=== PATIENT | female | born 1975 | race Caucasian/White ===

== ENCOUNTER → 2019-09-24 | Outpatient (CLI) | payer SELFPAY | PROVIDERS: Family Provider Family Medicine | DX: R10.9 Unspecified abdominal pain (principal); R31.9 Hematuria, unspecified | CPT/HCPCS: 76770 ==

== ENCOUNTER 2019-10-10 15:11 | Outpatient (CLI) | payer MEDICAID, SELFPAY ==
--- NOTE | 2019-10-10 15:17 | US_ITS ---
WS: [id number] TRANSABDOMINAL PELVIC AND TRANSVAGINAL PELVIC ULTRASOUND HISTORY: LLQ ABDOMINAL PAIN/L FLANK PAIN/HEMATURIA COMPARISON: 04/16/2019 and 05/12/2016 Uterus: 9 point cm x 5.5 cm x 4.7 cm. Uterus is very slightly enlarged and antegrade. Mild heterogene ity in the myometrium. Indeterminate for small fibroid in the RIGHT uterus measuring approximately 1. 7 x 1.3 cm. Endometrium: 0.7 cm. Normal homogeneity. Right ovary: 2.8 cm x 1.5 cm x 2.7 cm. Normal size and echogenicity. Normal vascularity. Left ovary: 2.8 cm x 3.0 cm x 1.8 cm. Normal size ovary with normal echogenicity. Normal vascularity. No free fluid. US/US pelvic with transvaginal IMPRESSION: 1. Very slight uterine enlargement and possible fibroid on the LEFT myometrium . 2. Normal endometrium.
== END 2019-10-10 15:12 | disposition home or self-care (01) ==
LOC: RAD 15:15
PROVIDERS: Family Provider Family Medicine; Visit Provider Nurse Practitioner Family
DX: N85.2 Hypertrophy of uterus (principal); R10.32 Left lower quadrant pain; R31.9 Hematuria, unspecified
CPT/HCPCS: 76830; 76856

== ENCOUNTER 2020-01-07 13:42 | Outpatient (CLI) | payer MEDICAID, SELFPAY ==
--- NOTE | 2020-01-07 14:15 | CT_ITS ---
WS: [id number] CT ABDOMEN PELVIS TECHNIQUE: Noncontrast CT of the abdomen and pelvis with coronal and sagittal reformatted images. CLINICAL INFORMATION: LEFT LOWER QUADRANT ABDOMINAL PAIN COMPARISON: CT April 16, 2019 DLP: 1093.[address] scans at [facility] use at least one of these dose optimization techniques: automat ed exposure control; mA and/or kV adjustment per patient size (includes targeted exams where dose is matched to clinical indication); or iterative reconstruction. FINDINGS: Noncontrast liver is normal. Noncontrast gallbladder is normal. Noncontrast spleen is normal. Normal adrenal glands. Noncontrast pancreas is unremarkable. Normal caliber abdominal aorta. Adrenal glands are normal. Lung bases are well aerated. No obstructing renal or ureteral calculi. No hydronephrosis. Pelvic phleboliths. No evidence of small or large bowel obstruction. Incidental fat-containing umbilical hernia. Scattered stool in the colon. Normal appendix. Lobulated left ovarian cystic appearing lesion with some internal septations. This measures approximately 4.1 x 1.7 CM. This can be further evaluated ultrasound. CT/CT abdomen pelvis wo con [id number] IMPRESSION: 1. Lobulated left ovarian low-attenuation cystic-appearing lesion with some in ternal septations. Recommend further evaluation with ultrasound. 2. No obstructing renal or ureteral calculi. 3. No free fluid in the pelvis. 4. No evidence of small or large bowel obstruction. 5. No other significant findings.
== END 2020-01-07 13:43 | disposition home or self-care (01) ==
LOC: RADWPI 13:45
PROVIDERS: Family Provider Family Medicine; PCP Family Medicine; Visit Provider Family Medicine
DX: R10.32 Left lower quadrant pain (principal)
CPT/HCPCS: 74176

== ENCOUNTER 2020-01-17 15:31 | Outpatient (CLI) | payer MEDICAID, SELFPAY ==
--- NOTE | 2020-01-17 | US_ITS ---
WS: [id number] TRANSVAGINAL PELVIC ULTRASOUND HISTORY: LLQ PAIN COMPARISON: CT 01/07/2020. Prior pelvic ultrasound 10/10/2019. Uterus: 7.3 cm x 5.1 cm x 3.8 cm. Normal size anteverted uterus. No fibroid or mass. Endometrium: 0.8 cm. Normal echogenicity. Right ovary: 2.5 cm x 1.5 cm x 2.2 cm. Normal size RIGHT ovary. Normal vascularity. Left ovary: 3.1 cm x 2.6 cm x 1.6 cm. Normal size LEFT ovary. No solid mass identified. There is a sm all corpus luteum associated with the LEFT ovary with a maximum diameter of 9 mm. Mildly complex. No free fluid. US/US transvaginal [id number] IMPRESSION: 1. Small follicle LEFT ovary. 2. Otherwise negative.
== END 2020-01-17 15:32 | disposition home or self-care (01) ==
LOC: RAD 15:33
PROVIDERS: Family Provider Family Medicine; PCP Family Medicine; Visit Provider Family Medicine
DX: R10.32 Left lower quadrant pain (principal)
CPT/HCPCS: 76830

== ENCOUNTER 2020-07-07 07:50 | Outpatient (CLI) | payer MEDICAID, SELFPAY ==
--- NOTE | 2020-07-07 07:57 | MM_ITS ---
WS: [id number] BILATERAL DIGITAL SCREENING MAMMOGRAPHY WITH CAD CLINICAL INFORMATION: SCREENING HISTORY: Screening mammogram. No current complaints. COMPARISON: TECHNIQUE: Bilateral CC and MLO views. FINDINGS: The breasts are composed of heterogeneous fibroglandular density tissue, which can limit the detectio n of small underlying mass lesions. No suspicious mass, asymmetry, calcifications, or architectural d istortion. No evidence of malignancy. MM/[place] [id number] IMPRESSION: BI-RADS: 1-Negative FOLLOW UP: 1 Year Follow-up Recommend return to annual screening mammography.
== END 2020-07-07 07:51 | disposition home or self-care (01) ==
LOC: RADSHAW 07:51
PROVIDERS: Visit Provider Obstetrics & Gynecology
DX: Z12.31 Encounter for screening mammogram for malignant neoplasm of breast (principal)
CPT/HCPCS: 77067

== ENCOUNTER → 2020-11-18 15:20 | Outpatient (BNVA) | payer MEDICAID, SELFPAY | PROVIDERS: Visit Provider Obstetrics & Gynecology | DX: R35.0 Frequency of micturition (principal); N93.8 Other specified abnormal uterine and vaginal bleeding; R10.2 Pelvic and perineal pain; G89.29 Other chronic pain | CPT/HCPCS: 83001; 84146; 84315; 84443; 84702; 85025 ==

== ENCOUNTER → 2020-11-27 16:04 | Outpatient (BNVA) | payer MEDICAID, SELFPAY | PROVIDERS: Visit Provider Obstetrics & Gynecology | DX: N92.6 Irregular menstruation, unspecified (principal); N83.202 Unspecified ovarian cyst, left side | CPT/HCPCS: 76830 ==

== ENCOUNTER → 2021-01-08 16:24 | Outpatient (BNVA) | payer MEDICAID, SELFPAY | PROVIDERS: Visit Provider Obstetrics & Gynecology | DX: Z20.822 Contact with and (suspected) exposure to COVID-19 (principal); Z11.52 Encounter for screening for COVID-19; N93.9 Abnormal uterine and vaginal bleeding, unspecified | CPT/HCPCS: 87635 ==

== ENCOUNTER 2021-01-14 09:27 | Observation (INO) | payer MEDICAID, SELFPAY ==
[2021-01-13 08:13] VITALS: BMI 27.4
[2021-01-13 08:43] LABS: Basophils % 0.4 %; Eosinophils # 0.1 10^3/uL (0.0-0.8); Eosinophils % 1.2 %; Hemoglobin 14.3 g/dL (11.5-15.3); Lymphocytes # 2.3 10^3/uL (0.8-4.8); Mean Corpuscular Hemoglobin 31.8 pg (28.0-34.0); Mean Corpuscular Volume 93.5 fL (81-99); Mean Platelet Volume 9.4 fL (7.4-10.4); Monocytes # 0.6 10^3/uL (0.2-0.9); Monocytes % 7.5 %; Neutrophils # 4.53 10^3/uL (1.8-7.7); Neutrophils % 60.4 %; Nucleated Red Blood Cells % 0 %; Platelet Count 438 10^3/cmm (130-400); Red Blood Count 4.49 10^6/uL (4.1-5.3); Red Cell Distribution Width 11.9 % (12.1-15.1); White Blood Count 7.5 10^3/uL (4.0-10.0)
--- NOTE | 2021-01-13 08:52 | P.ANESASSM_ITS ---
Pre-Anesthetic Assessment Pre-Anesthetic Assessment: Height/Weight: Height 1.57 m Weight 68.039 kg Preop Diagnosis: Chronic pelvic pain, abnormal uterine bleeding Proposed Procedure: Operation Date: 01/14/21 07:00 Proposed Procedures p Laparoscopic Assist Vaginal Hystectomy 16465 n93.9 r10.2(Not Applicable) - Antonio Kearney MD Was Beta Sam taken within 24 hours: N/A Was Clonidine taken within 24 hours: N/A Social: Social History: No alcohol and No tobacco Exam: Pre-Anes Outpt Exam: alert, oriented x 3, clear to auscultation bilaterally and regular rate & rhythm Airway: Submandibular: WNL Cervical ROM: WNL MP: 2 Dentition: Full History/ROS: No significant history except as noted Anesthetic Plan: ASA status: 1 Anesthesia: General Risk of > 500 ml blood loss (7ml/kg in children): No PFSH Anesthesia PFSH: Family History Grandmother Cervical cancer paternal Grandfather Breast cancer, Onset Age: 45 maternal Mother Hypertension Thyroid condition Father Stroke Diabetes Denies family history of Clotting disorder Hyperlipidemia Anesthesia complication Bleeding disorder Social History (Updated 01/09/21 @ 08:00 by Alejandra Harris RN) Smoking and tobacco status: never smoked Alcohol intake: never Substance/Drug Use: never Female Reproductive History: Date of last menstrual period: 01/06/21 Data Anesthesia CBC & Chem 7: 01/13/21 08:20 01/13/21 08:20 Other Labs: Laboratory Results - last 48 hr 01/13/21 08:20 WBC 7.5 RBC 4.49 Hgb 14.3 Hct 42.0 MCV 93.5 MCH 31.8 MCHC 34.0 RDW 11.9 L Plt Count 438 H MPV 9.4 Neut % (Auto) 60.4 Lymph % (Auto) 30.0 [place] % (Auto) 7.5 Eos % (Auto) 1.2 Baso % (Auto) 0.4 Neut # (Auto) 4.53 Lymph # (Auto) 2.3 [place] # (Auto) 0.6 Eos # (Auto) 0.1 Baso # (Auto) 0.0 Nucleated RBC % (auto) 0 Nucleated RBCs # 0.0 Cardiac Studies: No Data to Display
[2021-01-13 09:02] LABS: Alanine Aminotransferase 20 U/L (0-33); Albumin Level 4.5 g/dL (3.5-5.2); Alkaline Phosphatase 68 IU/L (35-105); Anion Gap 11.7 (5-19); Aspartate Amino Transferase 14 U/L (0-32); Blood Urea Nitrogen 9 mg/dL (6-20); Calcium 8.7 mg/dL (8.5-10.5); Carbon Dioxide 29 mmol/L (22-29); Chloride 100 mmol/L (98-107); Creatinine Clr Calc Pharmacy 93.6979; Globulin 2.9 g/dL (1.3-4.6); Glomerular Filtration Rate 91.3 mL/min (90-130); Glucose 97 mg/dL (65-115); Osmolality Calculated 283 mOsm/kg (285-295); Potassium 3.7 mmol/L (3.5-5.1); Sodium 137 mmol/L (136-145); Total Bilirubin 0.3 mg/dL (0.15-1.2); Total Protein 7.4 g/dL (6.6-8.7)
[2021-01-13 09:03] LABS: OR HCG Qualitative Urine Negative (Negative)
[2021-01-13 09:07] LABS: Add Urine Culture? No; Add Urine Microscopic? YES; Bacteria Urine TRACE /hpf; Bilirubin Urine Neg (Negative); Blood Urine 2+ (Negative); Glucose Urine UA Norm (Normal); Ketones Urine Negative (Negative); Leukocyte Esterase Urine Negative (Negative); Nitrate Urine Negative (Negative); Protein Urine Neg (Negative); RBC Urine 0-4 /hpf (0-2); Specific Gravity, Urine 1.005 (1.005-1.030); Urine Appearance Clear (CLEAR); Urine Color Yellow (Yellow); Urobilinogen Urine Norm (Negative); pH Urine 7 (5-7)
[2021-01-14] VITALS (18 sets, daily range): BP systolic 101–139; BP diastolic 59–85; PULSE 55–90; RESP 12–18; TEMP 36.2–36.9; O2SAT 94–100
[2021-01-14] MEDS: sodium chloride 0.9% 1,000 ML 30 ML IV (06:30)
--- NOTE | 2021-01-14 06:43 | P.ANESUD_ITS ---
Pre-Anesthetic Update Pre-Anesthetic Assessment: Date of Surgery/Procedure: 01/14/21 Preop Kamila gnosis: Chronic pelvic pain, abnormal uterine bleeding Proposed Procedure: Operation Date: 01/14/21 07:00 Proposed Procedures p Laparoscopic Assist Vaginal Hystectomy 64120 n93.9 r10.2(Not Applicable) - Antonio Kearney MD Any changes to Pre-Anesthetic Assessment?: No Last Intake: Intake Last Liquid Date 01/13/21 Last Solid Date 01/13/21 Labs Last 48hrs: Laboratory Results - last 48 hr 01/13/21 01/13/21 01/13/21 08:20 08:20 08:20 WBC 7.5 RBC 4.49 Hgb 14.3 Hct 42.0 MCV 93.5 MCH 31.8 MCHC 34.0 RDW 11.9 L Plt Count 438 H MPV 9.4 Neut % (Auto) 60.4 Lymph % (Auto) 30.0 [place] % (Auto) 7.5 Eos % (Auto) 1.2 Baso % (Auto) 0.4 Neut # (Auto) 4.53 Lymph # (Auto) 2.3 [place] # (Auto) 0.6 Eos # (Auto) 0.1 Baso # (Auto) 0.0 Nucleated RBC % (a uto) 0 Nucleated RBCs # 0.0 Sodium 137 Potassium 3.7 Chloride 100 Carbon Dioxide 29 Anion Gap 11.7 BUN 9 Creatinine 0.7 GFR Calculation 91.3 Glucose 97 Calculated Osmolal ity 283 L Calcium 8.7 Total Bilirubin 0.3 AST 14 ALT 20 Alkaline Phosphata se 68 Total Protein 7.4 Albumin 4.5 Globulin 2.9 Urine Color Urine Appearance Urine pH Ur Specific Gravit y Urine Protein Urine Glucose (UA) Urine Ketones Urine Blood Urine Nitrate Urine Bilirubin Urine Urobilinogen Ur Leukocyte Hanna ase Urine RBC Urine WBC Ur Squamous Epith Cells Amorphous Sediment Urine Bacteria Urine HCG, Qual Blood Type A Positive Rho(D) Type Positive / 4+ Antibody Screen Negative 01/13/21 01/13/21 08:21 08:21 WBC RBC Hgb Hct MCV MCH MCHC RDW Plt Count MPV Neut % (Auto) Lymph % (Auto) [place] % (Auto) Eos % (Auto) Baso % (Auto) Neut # (Auto) Lymph # (Auto) [place] # (Auto) Eos # (Auto) Baso # (Auto) Nucleated RBC % (a uto) Nucleated RBCs # Sodium Potassium Chloride Carbon Dioxide Anion Gap BUN Creatinine GFR Calculation Glucose Calculated Osmolal ity Calcium Total Bilirubin AST ALT Alkaline Phosphata se Total Protein Albumin Globulin Urine Color Yellow Urine Appearance Clear Urine pH 7 Ur Specific Gravit y 1.005 Urine Protein Neg Urine Glucose (UA) Norm Urine Ketones Negative Urine Blood 2+ H Urine Nitrate Negative Urine Bilirubin Neg Urine Urobilinogen Norm Ur Leukocyte Hanna ase Negative Urine RBC 0-4 H Urine WBC None Ur Squamous Epith Cells 5-10 H Amorphous Sediment Not Reportable Urine Bacteria Trace Urine HCG, Qual Negative Blood Type Rho(D) Type Antibody Screen Vitals: Temperature 97.7 F 01/14/21 06:12 Temperature Source Temporal Artery S can 01/14/21 06:12 Pulse Rate 62 01/14/21 06:12 Pulse Rhythm 01/14/21 06:35 Pulse Strength 3+ Normal 01/14/21 06:35 Respiratory Rate 18 01/14/21 06:12 Blood Pressure 113/70 01/14/21 06:12 Blood Pressure Stephanie n 84 01/14/21 06:12 Pulse Oximetry 97 01/14/21 06:12 Oxygen Delivery Me thod 01/14/21 06:35 Exam: Pre-Anes Outpt Exam: alert, oriented x 3, clear to auscultation bilaterally and regular rate & rhythm Cardiac Studies: No Data to Display
--- NOTE | 2021-01-14 06:53 | W.PM.OPSUD ---
Surgery/Procedure H&P Update DATE OF PROCEDURE: January 14, 2021 DATE H&P PERFORMED: 01/09/21 H&P UPDATE INFORMATION: I have reviewed H&P completed within last 30 days, I have examined patient prior to procedure and No changes to prior documentation PREOP DIAGNOSIS: Chronic pelvic pain, abnormal uterine bleeding PLANNED PROCEDURE: Operation Date: 01/14/21 07:00 Proposed Procedures p Laparoscopic Assist Vaginal Hystectomy 05135 n93.9 r10.2(Not Applicable) - Antonio Kearney MD
[2021-01-14] MEDS: ceFOXitin 2,000 MG in sodium chloride 0.9% (plus) 50 ML 100 MG IV (07:00)
--- NOTE | 2021-01-14 08:56 | PM.OP ---
Operative Report Date of procedure: January 14, 2021 Pre-op Diagnosis: Chronic pelvic pain, abnormal uterine bleeding Post-op diagnosis: same Procedure Done: Laparoscopic-assisted vaginal hysterectomy Cystoscopy. Specimens removed/disposition: Uterus Surgeon: Antonio Kearney MD Anesthesia: General Estimated blood loss (mL): 200 IV fluids (mL): 800 Urine output (mL): 100 Complications: None Condition: stable Disposition: PACU Brief History: 45-year-old female with chronic pelvic pain and abnormal uterine bleeding unresponsive to medical management Procedure: After informed consent, the patient was taken to the operating room where general anesthesia was administered. Pre-Procedure Time-Out verifying the correct patient identity, correct procedure verified with consent, correct site and side, correct patient position, availability of correct implants and any special equipment or requirements was performed and acknowledge by the OR team. She was placed in the dorsal lithotomy position and prepped and draped in sterile fashion. The patient was examined under anesthesia and found to have a normal uterus with normal adnexa. A Crook catheter was placed in the bladder. A weighted speculum was placed in the vagina, and the anterior lip of cervix was grasped with the single toothed tenaculum. A uterine manipulator was advanced into the endocervical. Tenaculum was removed after uterine manipulator was secured. The speculum was removed from the vagina. The attention was brought to abdomen after changing gloves. The base of the umbilicus was grasped with an Allis clamp and with 2 towel clamp bilaterally tenting up the umbilicus an intraumbilical incision was made with a scalpel. While tenting up on the abdomen, a Verres needle with sleeve was admitted into the intra-abdominal cavity. A saline drop test was performed and noted to be within normal limits. Pneumoperitoneum was attained with 4 liters of carbon dioxide. The Verres needle was removed. Then a 5 mm Optiview trocar and cannula were inserted under direct visualization without complications. Trocars were removed and the laparoscope was inserted and connected to the video camera light source. A 5 mm trocar and cannula were placed in the right lower quadrant under direct visualization after infiltration of 0.5% Marcaine with epinephrine. A 5 mm trocar and cannula were placed in the left lower quadrant under direct visualization after infiltration of 0.5% Marcaine with epinephrine. The pelvic contents were visualized and noted a small uterus, deep cul-de-sac, normal bilateral fallopian tubes and ovaries, normal appendix, and both ureters were identified crossing the pelvic brim and pelvic sidewall. The left round ligament was coagulated and transected using Voyant device. The left broad ligament was opened down to the level of the uterine artery and vein. The left infundibulopelvic ligament was coagulated using Voyant and then transected. The right round ligament was coagulated and transected using Voyant, and the right broad ligament was opened down to the level of the right uterine artery and vein. The right infundibulopelvic ligament was coagulated and transected using Voyant. Peritoneum of the lower uterine segment was entered using Voyant, and the bladder was dissected off the lower uterine segment using blunt dissection. Careful inspection revealed complete hemostasis. Then the Bookwalter vaginal retractor was placed in the vagina to visualize the cervix. The cervix was grasped across the anterior lip with a single-toothed tenaculum and circumferentially infiltrated with 1% Xylocaine with epinephrine at this time. The cervix was circumferentially excised with the scalpel. The vaginal mucosa was dissected superiorly with sharp dissection. The anterior peritoneal reflection was identified, and it was entered with Metzenbaum scissors. A posterior colpotomy was made through the cul-de-sac space. The posterior peritoneum was identified in similar fashion and Metzenbaum scissors were used to enter the cul-de-sac. At this time, a Bookwalter vaginal retractor was placed, advanced posteriorly into the cul-de-sac. At this time, the left and right uterosacral ligaments were isolated and ligated with 0 Vicryl. The Enseal device was then used in a serial fashion up through the cardinal ligaments bilaterally. Finally, the uterine arteries were cross-clamped, cut, and ligated with the Enseal device. Enseal device was then used up through the broad ligaments superiorly and finally the uterus was rotated posteriorly. The left and right tubes were then cross-clamped and ligated with Enseal device. The uterus was excised and submitted for pathologic evaluation. No other abnormalities were noted in the pelvic cavity. At this time, instruments were removed from the patient's abdominopelvic cavity. The patient was given indigo carmine IV. The vaginal cuff closure and peritoneum were incorporated into one layer with 0 Vicryl suture in a continuous running interlocking fashion. Hemostasis was noted to be achieved. Then the Crook catheter was removed and cystoscope was inserted. The bladder was filled with sterile water. Complete evaluation of the bladder mucosa was performed noting no lacerations, dimpling, tears, bleeding of the mucosa or muscular layers. Both ureteral orifices were identified. Prompt excretion of urine from both ureteral orifices was noted. Cystoscope was withdrawn. The Crook catheter was replaced. Excellent hemostasis was obtained. Then brought attention to abdomen and with the laparscope the pelvis was evaluated. The abdomen was carefully irrigated and inspected to ensure complete hemostasis. No indigo carmine noted in cavity. Once the entire abdomen was inspected, then the instruments carefully removed. The ports were then removed under direct visualization being sure to note hemostasis of the port sites on removal. The incisions were then closed with interrupted Monocryl sutures and Dermabond. The patient tolerated the procedure well and was taken to the recovery room in a stable condition. Sponge and needle counts were correct x3.
[2021-01-14] MEDS: scopolamine 1.5 Patch 1 PATCH TRANSDERMA (09:14)
--- NOTE | 2021-01-14 09:19 | P.PCN_ITS ---
PACU note PACU note: VSS, Good respiratory effort, report to TRANSITIONS RN CARE COORDINATOR Post-Anesthesia Exam: awake
--- NOTE | 2021-01-14 09:19 | PM.PACU ---
PACU note PACU note: VSS, Good respiratory effort, report to LEATHER GOODS I ASSEMBLER Post-Anesthesia Exam: awake
--- NOTE | 2021-01-14 09:23 | SUR.PHASEI ---
0923- ORAL AIRWAY OUT, SIMPLE MASK IN PLACE AT 6LPM SAT 100%
[2021-01-14] MEDS: ondansetron 2 mg/ML SDV 2 mL 4 MG IVP (10:54)
[2021-01-14] MEDS: HYDROcodone-acetaminophen 5-325 mg Tablet PO ×2 (11:47→19:31)
--- NOTE | 2021-01-14 14:31 | ANE.PACU2 ---
Inpatient post-anesthesia follow up: Airway intact: Yes Vital signs: Temperature 97.5 F Pulse Rate 90 Respiratory Rate 16 Blood Pressure 105/69 Pulse Oximetry 97 Oxygen Delivery Me thod Room Air Oxygen Flow Rate 6 Fraction of Inspir ed Oxygen Hydration adequate: Yes Nausea and vomiting: No Pain level: 2 Mental status: Baseline
[2021-01-14] MEDS: ketorolac 30 mg/mL INJ IVP ×2 (15:25→21:38)
[2021-01-14] MEDS: dextrose 5%-lactated ringers 1,000 ML 125 ML IV (17:10)
[2021-01-14] MEDS: docusate sodium 100 mg Capsule PO (17:10)
[2021-01-15] MEDS: dextrose 5%-lactated ringers 1,000 ML 125 ML IV (01:19)
[2021-01-15 04:41] VITALS: BP 110/63; PULSE 59; RESP 16; TEMP 36.9; O2SAT 97
[2021-01-15 05:07] LABS: Hemoglobin 11.7 g/dL (11.5-15.3); Mean Corpuscular HGB Conc 33.4 g/dL (30.0-36.0); Mean Corpuscular Hemoglobin 31.5 pg (28.0-34.0); Mean Corpuscular Volume 94.3 fL (81-99); Mean Platelet Volume 9.7 fL (7.4-10.4); Platelet Count 340 10^3/cmm (130-400); Red Blood Count 3.71 10^6/uL (4.1-5.3); Red Cell Distribution Width 11.9 % (12.1-15.1); White Blood Count 16.3 10^3/uL (4.0-10.0)
[2021-01-15] MEDS: ibuprofen 800 mg tablet PO (09:07)
[2021-01-15] MEDS: docusate sodium 100 mg Capsule PO (09:07)
[2021-01-15 10:40] VITALS: BP 108/67; PULSE 58; RESP 16; TEMP 36.8; O2SAT 98
--- NOTE | 2021-01-15 10:51 | P.DS_ITS ---
Discharge Providers BEAD WIRE INSULATOR Date of Admission: 01/14/21 09:27 Date of Discharge: 01/15/21 Attending Provider at Admission: Antonio Kearney MD Attending Provider at Discharge: Antonio Kearney MD Reason for Visit Reason for Visit: [facility] Brief History: Mrs. Young 45-year-old female with a history of abnormal uterine bleeding unresponsive to medical management and chronic pelvic pain. Hospital Course Hospital Course Mrs. Padgett is 45-year-old female admitted for planned laparoscopic-assisted vaginal hysterectomy. The procedure was performed without complications. Overnight postop observation was uneventful. She is afebrile and hemodynamically stable. Ambulating without difficulty. Tolerating diet well. Passing flatus. Physical Exam Narrative: EXAM NARRATIVE: GA: Alert and oriented ?3. HEENT: WNL. Heart: Regular rate and rhythm. Lungs: Clear to auscultation bilaterally. Abdomen: Bowel sounds present, minimal tenderness, incision clean and dry, no redness, pain or edema. VIDEO AND SOUND RECORDER: No bleeding. Extremities: No edema, no cyanosis, no calves pain. Urinary Catheter Management^: Corok: Cath Placed During This Visit: yes, but has since been removed by the nurse Reason for Continuing Indwelling Catheter: Decision to DC Catheter Urinary Catheter Date of Insertion: 01/14/21 Urinary Catheter Time of Insertion: 07:30 Date Urinary Catheter Removed: 01/15/21 Time Urinary Catheter Discontinued: 09:00 Discharge Data Data Completed and Pending: Pending at discharge Category Date Time Status ES surgery / GI i mages Routine Exams 01/14/21 06:34 Taken Pathology: Surgic al [PTH] Routine Pth 01/14/21 09:15 Received Labs from last 24 hours 01/15/21 04:40 WBC 16.3 H RBC 3.71 L Hgb 11.7 Hct 35.0 L MCV 94.3 MCH 31.5 MCHC 33.4 RDW 11.9 L Plt Count 340 MPV 9.7 Vitals: Last Vital Signs Temp 98.3 F 01/15/21 10:40 Pulse 58 L 01/15/21 10:40 Resp 16 01/15/21 10:40 BP 108/67 01/15/21 10:40 Pulse Ox 98 01/15/21 10:40 Discharge Plan Discharge Patient Disposition: Home Condition: Stable Prescriptions: New hydrocodone-acetaminophen 5-325 mg tablet 1 tab PO Q4H PRN (Reason: pain) Qty: 20 RF: 0 acetaminophen 325 mg capsule 325 mg PO Q4H PRN (Reason: fever or pain) Qty: 60 RF: 0 ibuprofen 800 mg tablet 800 mg PO TID PRN (Reason: pain) Qty: 60 RF: 0 Continued No Known Home Medications RF: 0 Discharge Orders: Discharge Order (Routine); Ordered 01/15/21 Ordered By: Antonio Kearney Referrals: Antonio Kearney MD [Physician] - (* Your 2 week incision check is on 01/27/2021 at 3:45pm * Your 6 week follow up appointment is on 02/27/2021 at 3:45pm) Discharge Diet: Usual diet Discharge Activity: Increase activity as tolerated Patient Instructions: Laparoscopically Assisted Vaginal Hysterectomy (DC), OB Discharge Report, OB Laproscopic Surgery - [facility], OB Food/Drug Interaction Guide, Opioid Safety Activity Restrictions/Additional Instructions: 1. Please call [facility] [place] [place] [facility] on next working day to make your post-operative appointment in 2 weeks. 2. Please stay home until you come back to the clinic on first post-operative check up. 3. Please follow instructions on your medications CAREFULLY. 4. If you have abdominal incision, do not cover it unless dressing is necessary because of drainage. OK to shower, but avoid bath. Leave steri-strips until they fall off. If they are still on one week after surgery, you may remove them. 5. If you had vaginal surgery or vaginal repair, Dr. Kearney may instruct you to take SITZ bath. 6. Yellow, blood tinged odorous vaginal discharge is usually normal after hysterectomy or vaginal surgeries. 7. No sexual intercourse, tampons, or douches until you are completely released from the post-operative care. 8. Avoid constipation by eating right and maybe using some Metamucil or Milk of Magnesia. 9. All prescription refills are given during the working hours. Please do no wait till it runs out. Call the clinic at [phone] before your medication runs out. The clinic will get in touch with your doctor to prescribe medications if necessary. 10. Please remain within 40 mile radius from our hospital because emergencies do happen now and then during the post-operative period. 11. If you have stairs at home, take one step at a time slowly and minimize the number of trips. It helps to stay in one floor for the next few days. No lifting except what you can lift by one hand until you are released from the post-operative care. 12. Driving is discouraged until you are well healed. It may be 3-4 weeks before you feel strong enough to drive. You should be able to turn and look through the rear window without pain and you should be able to push the brake pedal very hard without pain before you drive. No fast rules, but SAFETY should be your primary concern. DO NOT drive if you are on sedating medications such as narcotics. 13. Call the clinic (during working hours) to make urgent appointment or go to the Emergency room, if any of the following occurs: i. Vaginal bleeding becomes heavy, more than a period. ii. Incision becomes red and sore, or drains pus. iii. Your temperature is over 100.4 or you have chill. iv. IV site becomes red and swollen (a little ``knot?? is usually OK) v. Persistent nausea and vomiting vi. Persistent constipation or diarrhea vii. Rash or allergic reaction to medications. Discharge Attestations BEAD WIRE INSULATOR Time Spent in Discharge Care*: greater than 30 min Coding Level of Care Code Acute Access Developer for Anjana Carty
[2021-01-15 11:05] VITALS: BP 108/67; PULSE 58; RESP 16; TEMP 36.8; O2SAT 98
== END 2021-01-15 11:08 | disposition home or self-care (01) ==
LOC: OBGYN 09:37
PROVIDERS: Admitting Provider Obstetrics & Gynecology; Visit Provider Obstetrics & Gynecology
PROC: 0UT9FZZ Resection of Uterus, Via Natural or Artificial Opening With Percutaneous Endoscopic Assistance (ICD-10-PCS; CPT 58550; principal; 2021-01-14 07:00)
DX: R10.2 Pelvic and perineal pain (principal); G89.29 Other chronic pain; N93.9 Abnormal uterine and vaginal bleeding, unspecified
CPT/HCPCS: 58550; 36415; 80053; 81001; 84703; 85025; 85027; 86850; 86900; 88307; G0378; J0694; J1100; J1885; J2405; J2704; J2710; J3010; J3490; J7030

== ENCOUNTER 2022-10-11 08:24 | Outpatient (CLI) | payer MEDICAID, SELFPAY ==
--- NOTE | 2022-10-11 08:31 | MM_ITS ---
WS: [id number] Bilateral screening 3D tomosynthesis digital mammogram, 10/11/2022 Clinical Data: SCREENING Comparison: 07/07/2020, 11/13/2018, 10/17/2017, 05/27/2016, 06/28/2013, Findings: The breast parenchymal pattern shows fat replacement. No spiculated masses or clustered calcification s are seen. There are no secondary signs of carcinoma. There is a retromammary lymph node noted on th e right MLO view which was present on 05/27/2016. MM/[place] [id number] Impression: 1. Negative bilateral mammogram unchanged. 2. Recommend annual screening mammograms. BIRADS: 1-Negative FOLLOW UP: 1 Year Follow-up The CAD truckload checker was used.
== END 2022-10-11 08:25 | disposition home or self-care (01) ==
LOC: RAD 08:25
PROVIDERS: Visit Provider Obstetrics & Gynecology
DX: Z12.31 Encounter for screening mammogram for malignant neoplasm of breast (principal)
CPT/HCPCS: 77063; 77067

== ENCOUNTER 2023-04-09 13:46 | Emergency (ER) | payer MEDICAID, SELFPAY ==
[2023-04-09 13:55] VITALS: BP 164/96; PULSE 75; RESP 16; TEMP 36.9; O2SAT 99; BMI 27.4
[2023-04-09 13:58] VITALS: BP 164/96; PULSE 80; RESP 18; TEMP 36.9; O2SAT 98
--- NOTE | 2023-04-09 14:17 | XRR_ITS ---
PROCEDURE INFORMATION: Exam: XR Left Hand Exam date and time: 04/09/2023 2:25 PM Age: 47 years old Clinical indication: Pain; Hand; Left; Additional info: Left hand pain and stiffness in fingers-no injury TECHNIQUE: Imaging protocol: Radiologic exam of the left hand. Views: 3 or more views. COMPARISON: No relevant prior studies available. FINDINGS: Bones/joints: Normal. Soft tissues: Normal. XR/XR hand LT min 3V* [id number] IMPRESSION: No acute findings.
--- NOTE | 2023-04-09 14:21 | W.ED.EXTPRO ---
HPI - Extremity Problem General: Chief complaint: Extremity Problem,Nontraumatic Stated complaint: LT hand/Joint pain/difficulty grasping Time Seen by Provider: 04/09/23 13:54 History of Present Illness: Patient is a 47-year-old female comes to the ED with left hand pain and stiffness. Patient says symptoms started approximately 3 days ago. 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 Denies any other injury or trauma to cause symptoms. Patient says she took 2 doses of ibuprofen yesterday and it did not help and she has not taken anything since. She rates her pain currently a 10 out of 10. She also endorses some swelling in her hand as well. She says her second and third fingers are real stiff. Associated symptoms: Deny chest pain, fever(s) or rash Review of Systems Const: Denies: fever(s), chills or fatigue Eyes: Denies: change in vision or eye discomfort ENMT: Denies: throat pain, odynophagia, nasal discharge or nasal congestion Card: Denies: chest pain, palpitations, edema, swelling of feet/ankles, dyspnea on exertion or orthopnea Resp: Denies: dyspnea, productive cough or non-productive cough GI: Denies: abdominal pain, nausea, vomiting, diarrhea, constipation or hematochezia : Denies: flank pain, dysuria or hematuria Musc: Reports: extremity pain (Left hand pain); Denies: neck pain, back pain or extremity swelling Skin/Breast: Denies: rash or new lesions Neuro: Denies: headache(s), numbness in extremities or weakness in extremities [facility] ED PFSH: Surgical History (Updated 04/10/23 @ 07:11 by PARTHA Ulloa) H/O tubal ligation 04/21/2007---Done at time of third ----> pathology showed left fallopian tube with complete transection and normal morphology. The segment of tube submitted as right tube was a dilated vascular structure. The right fallopian tube with been absent secondary to patient's history of ectopic H/O: hysterectomy 01/14/2021- [facility] and cystoscopy performed by Dr. Kearney at [facility] Family History Grandmother Cervical cancer paternal Grandfather Breast cancer, Onset Age: 45 maternal Mother Hypertension Thyroid condition Father Stroke Diabetes Denies family history of Clotting disorder Hyperlipidemia Anesthesia complication Bleeding disorder Social History Smoking and tobacco status: never smoked Alcohol intake: never Substance/Drug Use: never Physical Exam Const: COMMON NORMALS: patient oriented x3 HENMT: COMMON NORMALS: normocephalic HEAD & SCALP: normocephalic MOUTH: Normal oral and palatal mucosa present THROAT: posterior oropharynx normal and uvula midline Neck/C-Spine: COMMON NORMALS: supple GENERAL: Yes normal visual inspection Resp: COMMON NORMALS: normal respiratory effort, No retractions, No use of accessory muscles and clear to auscultation bilaterally AUSCULTATION: clear to auscultation bilaterally Cardio: COMMON NORMALS: regular rate, regular rhythm, S1 normal heart sound present, S2 normal heart sound present, No gallops present (Cardio), No clicks present (Cardio), No murmurs present (Cardio) and Peripheral pulses 2+ throughout RATE: regular rate RHYTHM: regular rhythm HEART SOUNDS: S1 normal heart sound present and S2 normal heart sound present PERIPHERAL PULSES: Peripheral pulses 2+ throughout GI: COMMON NORMALS: Normal to inspection, nondistended, normoactive bowel sounds present, Soft to palpation, non-tender and no masses PALPATION: Yes Soft to palpation : COMMON NORMALS: Yes no CVA tenderness BLADDER/KIDNEY EXAM: Yes no CVA tenderness Back/Pelvis: COMMON NORMALS: no CVA tenderness Extremity: COMMON NORMALS: normal to inspection and full ROM Neuro: COMMON NORMALS: patient oriented x3 GAIT: Yes Normal gait present Skin: GENERAL SKIN EXAM: dry skin Course Vital Signs: Vital signs: Vital Signs Temperature 98 F 04/09/23 15:20 Pulse Rate 68 04/09/23 15:20 Respiratory Rate 18 04/09/23 15:20 Blood Pressure 141/90 04/09/23 15:20 Pulse Oximetry 98 04/09/23 15:20 Oxygen Delivery Me thod Room Air 04/09/23 13:58 MDM - Extremity (Nontraumatic) Medical Decision Making Patient is a 47-year-old female comes to the ED with left hand pain and stiffness. Patient says symptoms started approximately 3 days ago. 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 Denies any other injury or trauma to cause symptoms. Patient says she took 2 doses of ibuprofen yesterday and it did not help and she has not taken anything since. She rates her pain currently a 10 out of 10. She also endorses some swelling in her hand as well. She says her second and third fingers are real stiff. Vitals are stable. Exam is benign. X-ray of left hand shows no acute fractures or findings. Patient was diagnosed with arthralgia of left hand and was discharged home with a prescription for ibuprofen 800 mg and a Medrol Dosepak. Told to follow-up with her PCP within the next week for reevaluation. Return to ED precautions given. Patient understood and agreed with plan. Lab Data Radiology Impressions Hand X-Ray 04/09/23 14:17 IMPRESSION: No acute findings. Discharge Plan Discharge Patient Disposition: Home Clinical Impression: Arthralgia of left hand Condition: Stable Prescriptions: New Medrol (Parth) 4 mg tablets,dose pack See Rx Instructions .ROUTE .COMPLEX Qty: 21 0RF Rx Instructions: orally per package directions ibuprofen 800 mg tablet 800 mg PO Q8H PRN (Reason: pain) Qty: 30 0RF No Action ibuprofen 200 mg Tablet 400 mg PO BID PRN (Reason: Pain) Discharge Orders: Discharge ED (Routine); Ordered 04/09/23 Ordered By: Eleazar Khan Discharge Diet: Regular Discharge Activity: Increase activity as tolerated Patient Instructions: Arthralgia (ED) Activity Restrictions/Additional Instructions: Follow-up with medical provider as directed for the next 7-10 days for reevaluation. Take medications as prescribed. Return to the ER or your medical provider if condition worsens. Please read and understand discharge instructions. Thank you for choosing [facility] for your healthcare needs today. Please realize this is an emergency room and that we are providing you with a medical screening exam and this may not be complete and all inclusive of all the testing and or work up that you may need to determine your ailment or severity of your illness. It is very important that you follow up as instructed or that you return to the Emergency Department should you have concerns or if your condition changes or worsens in any way. Coding Level of Care Code ED Station Mechanic for Anjana Carty
[2023-04-09 15:20] VITALS: BP 141/90; PULSE 68; RESP 18; TEMP 36.6; O2SAT 98
== END 2023-04-09 15:21 | disposition home or self-care (01) ==
PROVIDERS: Emergency Provider Physician Assistant
DX: M25.542 Pain in joints of left hand (principal)
CPT/HCPCS: 73130; 99283

== ENCOUNTER 2023-10-10 14:05 | Outpatient (CLI) | payer MEDICAID, SELFPAY ==
--- NOTE | 2023-10-10 14:08 | MM_ITS ---
WS: [id number] BILATERAL 3D TOMOSYNTHESIS DIGITAL DIAGNOSTIC MAMMOGRAPHY WITH CAD CLINICAL INFORMATION: N63.0 - Unspecified lump in unspecified breast HISTORY: Pain and lump RIGHT breast COMPARISON: 2022 TECHNIQUE: Bilateral CC, MLO, and ML views. FINDINGS: Scattered fibroglandular densities bilaterally. Palpable marker upper outer quadrant RIGHT breast. No rmal underlying parenchymal tissue in this area. Ultrasound of this area is pending. LEFT breast appears unchanged compared to 10/11/2022. ULTRASOUND BREAST RIGHT TECHNIQUE: Ultrasound right breast focused area of concern. CLINICAL INFORMATION: N63.0 - Unspecified lump in unspecified breast FINDINGS: Ultrasound performed upper outer quadrant RIGHT breast and RIGHT axilla to nipple. Ultrasound RIGHT breast upper outer quadrant in the area of concern. No cystic or solid lesions in th e upper outer quadrant in the area of concern. Dense breast tissue compatible with fibrocystic change deep to the area of pain at the 10 o'clock position 7 cm from the nipple. A few lymph nodes noted in the RIGHT axilla the largest measuring 1.3 x 1.5 cm. No pathologic lymphadenopathy. IMPRESSION: MM/[place] [id number] BI-RADS: 2-Benign FOLLOW UP: 1 Year Follow-up Recommend return to annual screening mammography.
--- NOTE | 2023-10-10 15:00 | US_ITS ---
WS: [id number] BILATERAL 3D TOMOSYNTHESIS DIGITAL DIAGNOSTIC MAMMOGRAPHY WITH CAD CLINICAL INFORMATION: N63.0 - Unspecified lump in unspecified breast HISTORY: Pain and lump RIGHT breast COMPARISON: 2022 TECHNIQUE: Bilateral CC, MLO, and ML views. FINDINGS: Scattered fibroglandular densities bilaterally. Palpable marker upper outer quadrant RIGHT breast. No rmal underlying parenchymal tissue in this area. Ultrasound of this area is pending. LEFT breast appears unchanged compared to 10/11/2022. ULTRASOUND BREAST RIGHT TECHNIQUE: Ultrasound right breast focused area of concern. CLINICAL INFORMATION: N63.0 - Unspecified lump in unspecified breast FINDINGS: Ultrasound performed upper outer quadrant RIGHT breast and RIGHT axilla to nipple. Ultrasound RIGHT breast upper outer quadrant in the area of concern. No cystic or solid lesions in th e upper outer quadrant in the area of concern. Dense breast tissue compatible with fibrocystic change deep to the area of pain at the 10 o'clock position 7 cm from the nipple. A few lymph nodes noted in the RIGHT axilla the largest measuring 1.3 x 1.5 cm. No pathologic lymphadenopathy. IMPRESSION: US/US breast RT limited* [id number] BI-RADS: 2-Benign FOLLOW UP: 1 Year Follow-up Recommend return to annual screening mammography.
== END 2023-10-10 14:06 | disposition home or self-care (01) ==
LOC: RAD 14:05
PROVIDERS: PCP Obstetrics & Gynecology; Visit Provider Obstetrics & Gynecology
DX: N63.0 Unspecified lump in unspecified breast (principal); R92.30 Dense breasts, unspecified
CPT/HCPCS: 76642; 77062; G0279

== ENCOUNTER → 2023-11-03 14:19 | Outpatient (BNVA) | payer MEDICAID, SELFPAY | PROVIDERS: PCP Obstetrics & Gynecology; Referring Provider Obstetrics & Gynecology; Visit Provider Surgery | DX: R59.0 Localized enlarged lymph nodes (principal); Z12.11 Encounter for screening for malignant neoplasm of colon | CPT/HCPCS: 99204 ==

== ENCOUNTER 2024-06-05 11:07 | Outpatient (CLI) | payer MEDICAID, SELFPAY ==
--- NOTE | 2024-06-05 11:30 | MM_ITS ---
WS: [id number] DIAGNOSTIC BILATERAL DIGITAL BREAST TOMOSYNTHESIS MAMMOGRAPHY WITH CAD Bilateral breast ultrasound, limited HISTORY: N63.10 - Unspecified lump in the right breast, new palpable area LEFT breast. COMPARISON: 10/10/2023, 10/11/2022, 07/07/2020, 11/13/2018 TECHNIQUE: Bilateral craniocaudad, mediolateral oblique, and mediolateral views are submitted with to mosynthesis and SM. Spot compression RIGHT and LEFT CC. Spot RIGHT MLO. Computer aided detection util ized. Breast composition: The breasts are heterogeneously dense, which may obscure small masses. Triangular marker marker in the RIGHT breast is towards the axillary tail. There are benign-appearing lymph nodes identified. These lymph nodes have fatty sam. Ultrasound will be performed of this area to ensure there is no underlying occult mass. The remaining RIGHT breast is negative. Additional tri angular marker 6:00 LEFT breast at middle depth. There is no mass associated with this marker or dist ortion. Ultrasound to follow. Bilateral breast ultrasound, limited. RIGHT breast: Benign-appearing lymph nodes in the RIGHT axilla. These lymph nodes have been previousl y described. Normal size and echogenicity. There are several lymph nodes in the axilla but none that appear abnormal. Ultrasound also in the RIGHT upper outer quadrant at the palpable area is negative. LEFT breast: LEFT axilla is performed for comparison to the RIGHT. The LEFT axillary lymph nodes appe ar similar to the RIGHT and are normal. Palpable area along 5:00 axis, 4 cm from the nipple is negati ve. MM/[place] [id number] IMPRESSION: BI-RADS: 2 - Benign FOLLOW UP: 1 Year Follow-up
--- NOTE | 2024-06-05 12:30 | US_ITS ---
WS: [id number] DIAGNOSTIC BILATERAL DIGITAL BREAST TOMOSYNTHESIS MAMMOGRAPHY WITH CAD Bilateral breast ultrasound, limited HISTORY: N63.10 - Unspecified lump in the right breast, new palpable area LEFT breast. COMPARISON: 10/10/2023, 10/11/2022, 07/07/2020, 11/13/2018 TECHNIQUE: Bilateral craniocaudad, mediolateral oblique, and mediolateral views are submitted with to mosynthesis and SM. Spot compression RIGHT and LEFT CC. Spot RIGHT MLO. Computer aided detection util ized. Breast composition: The breasts are heterogeneously dense, which may obscure small masses. Triangular marker marker in the RIGHT breast is towards the axillary tail. There are benign-appearing lymph nodes identified. These lymph nodes have fatty sam. Ultrasound will be performed of this area to ensure there is no underlying occult mass. The remaining RIGHT breast is negative. Additional tri angular marker 6:00 LEFT breast at middle depth. There is no mass associated with this marker or dist ortion. Ultrasound to follow. Bilateral breast ultrasound, limited. RIGHT breast: Benign-appearing lymph nodes in the RIGHT axilla. These lymph nodes have been previousl y described. Normal size and echogenicity. There are several lymph nodes in the axilla but none that appear abnormal. Ultrasound also in the RIGHT upper outer quadrant at the palpable area is negative. LEFT breast: LEFT axilla is performed for comparison to the RIGHT. The LEFT axillary lymph nodes appe ar similar to the RIGHT and are normal. Palpable area along 5:00 axis, 4 cm from the nipple is negati ve. US/US breast BI complete [id number] IMPRESSION: BI-RADS: 2 - Benign FOLLOW UP: 1 Year Follow-up
== END 2024-06-05 11:08 | disposition home or self-care (01) ==
LOC: RAD 11:08
PROVIDERS: PCP Obstetrics & Gynecology; Visit Provider Obstetrics & Gynecology
DX: N63.23 Unspecified lump in the left breast, lower outer quadrant (principal); N63.10 Unspecified lump in the right breast, unspecified quadrant; R92.333 Mammographic heterogeneous density, bilateral breasts; N64.59 Other signs and symptoms in breast
CPT/HCPCS: 76641; 77062; 99204; G0279

== ENCOUNTER 2024-06-27 09:32 | Day surgery (SDC) | payer MEDICAID, SELFPAY ==
[2024-06-27] VITALS (9 sets, daily range): BP systolic 145–160; BP diastolic 69–83; PULSE 69–88; RESP 16–17; TEMP 36.2–36.7; O2SAT 96–100; BMI 25.7
[2024-06-27] MEDS: sodium chloride 0.9% 1,000 ML 30 ML IV (10:10)
--- NOTE | 2024-06-27 10:45 | P.ANESASSM_ITS ---
Pre-Anesthetic Assessment Height/Weight: Height 5 ft 4 in Weight 150 lb Temp Pulse Resp BP Pulse Ox O2 Del Method 97.7 F 69 17 145/83 97 Room Air 06/27/24 09:54 06/27/24 09:54 06/27/24 09:54 06/27/24 09:54 06/27/24 09:54 06/27/24 09:55 Preop Diagnosis: Breast mass Operation Date: 06/27/24 11:10 Proposed Procedures p Excision of Breast Mass Excision Breast Mass 43261, N63.10(Right) - Neftali Landin MD Was Beta Sam taken within 24 hours: N/A Was Clonidine taken within 24 hours: N/A Last intake: Intake Last Liquid Date 06/26/24 Last Liquid Time 21:00 Last Solid Date 06/26/24 Last Solid Time 17:00 Social No alcohol and No tobacco Exam alert, oriented x 3, clear to auscultation bilaterally and regular rate & rhythm Airway Submandibular: within normal limits Cervical ROM: within normal limits Mallampati: Class II Dentition: full Anesthetic Plan ASA status: 2 Anesthesia: General Other: Denies any issues with anesthesia NPO since midnight Concerning breast mass, here for excision Patient denies any cardiac or pulmonary issues METs greater than 4 Plan for general anesthesia with LMA Medications/Allergies Home Medications Medication Instructions Recorded Confirmed Last Taken Type No Known Home Medications 05/24/24 06/26/24 Unknown History Allergies Allergy/AdvReac Type Severity Reaction Status Date / Time No Known Allergies Allergy Verified 06/27/24 09:48 Current Medications Generic Name Dose Route Start Last Admin Trade Name Freq PRN Reason Stop Dose Admin Sodium Chloride 1,000 mls @ 30 mls/hr 06/27/24 09:45 06/27/24 10:10 Sodium Chloride 0.9% IV 06/28/24 09:44 30 mls/hr .Q24H FAISAL Administration PFSH Anesthesia Surgical History H/O tubal ligation 04/21/2007---Done at time of third ----> pathology showed left fallopian tube with complete transection and normal morphology. The segment of tube submitted as right tube was a dilated vascular structure. The right fallopian tube with been absent secondary to patient's history of ectopic H/O: hysterectomy 01/14/2021- [facility] and cystoscopy performed by Dr. Kearney at [facility] Family History Grandmother Cervical cancer paternal Grandfather Breast cancer, Onset Age: 45 maternal Mother Hypertension Thyroid disease Father Stroke Diabetes Denies family history of Clotting disorder Hyperlipidemia Anesthesia complication Bleeding disorder Social History Smoking and tobacco/nicotine status: never used tobacco/nicotine Data Anesthesia Cardiac Studies: No Data to Display
[2024-06-27] MEDS: ceFAZolin 2,000 mg SDV 2000 MG IVP (13:05)
[2024-06-27] MEDS: lidocaine-epi 1% PF 1:200,000 30 mL SDV INJECTION (13:30)
[2024-06-27] MEDS: BUPivacaine 0.25% INJ 30 mL INJECTION (13:30)
--- NOTE | 2024-06-27 13:56 | W.PM.BPONFUL ---
Pathology: Breast tissue Implant(s): None Anesthesia: General Anesthesia Complications: None Brief history/preop diagnosis: 48-year-old female who presented with a breast lump that was causing pain. Patient agreed to proceed to the operating room for resection after discussing risks and benefits. I marked the lump in the preop area and patient confirmed this is what was causing pain. Full operative report: After obtaining consent patient was brought to the operating room. Preoperative Ancef was administered. SCDs were working. General anesthesia was induced. Patient was placed supine in the operating room table. I identified the palpable lump on the right breast using intraoperative ultrasound. The right breast was prepped and draped in the usual sterile fashion. A curvilinear incision was carried out and tissue dissection was performed down to the palpable lump. Dissection of the lobe was carried out using electrocautery. Breast tissue specimen was sent to pathology for permanent sections. The breast cavity was inspected and no other palpable lumps were felt. I also looked with the ultrasound to ensure there were no other lumps that needed to be resected. Adequate hemostasis was achieved using electrocautery. Tissue rearrangement was carried out in order to fill in the breast tissue defect. I used 3-0 Vicryl in interrupted fashion to carry this out. Interrupted 3-0 Vicryl was used in the deep dermal layer. Skin was closed using 4-0 Monocryl and surgical glue. A dry gauze dressing was applied and a sports bra was also applied. Patient woke up from anesthesia without any complications. Condition: Stable Dispostion: Home
--- NOTE | 2024-06-28 15:47 | W.PM.OPSUD ---
Surgery/Procedure H&P Update DATE OF PROCEDURE: June 28, 2024 DATE H&P PERFORMED: 06/05/24 H&P UPDATE INFORMATION: I have reviewed H&P completed within last 30 days, I have examined patient prior to procedure and No changes to prior documentation PREOP DIAGNOSIS: Breast mass PLANNED PROCEDURE: Operation Date: 06/27/24 11:10 Proposed Procedures p Excision of Breast Mass Excision Breast Mass 88238, N63.10(Right) - Neftali Landin MD
== END 2024-06-27 15:13 | disposition home or self-care (01) ==
PROVIDERS: PCP Obstetrics & Gynecology; Visit Provider Student in an Organized Health Care Education/Training Program
PROC: (CPT 19120; principal; 2024-06-27 11:10)
DX: D24.1 Benign neoplasm of right breast (principal)
CPT/HCPCS: 19301; 88305; J0690; J1100; J1200; J2250; J2405; J2704; J3010; J3490; J7030

== ENCOUNTER 2024-07-09 16:08 | Emergency (ER) | payer MEDICAID, SELFPAY ==
[2024-07-09 16:20] VITALS: BP 163/83; PULSE 85; RESP 18; TEMP 36.7; O2SAT 99; BMI 25.7
--- NOTE | 2024-07-09 16:37 | ED_ITS ---
HPI - Skin/Abscess/Foreign Bdy 2 General: Chief complaint: Skin/Abscess/Foreign Body Stated complaint: open wond, painful Time Seen by Provider: 07/09/24 16:12 Source: patient Mode of arrival: ambulatory Limitations: no limitations History of Present Illness: 48-year-old female had a right breast pham mpectomy on June 27 states she has had a wound dehiscence with some drainage from the right breast she denies any fevers had some slight pain. She denies any worsening improving factors. Associated symptoms: Deny chills, fever(s), nausea or vomiting Related Data Home Medications Medication Instructions Recorded Confirmed sulfamethoxazole 800 1 tab PO BID 07/09/24 07/09/24 mg-trimethoprim 160 mg tablet (Bactrim DS) Allergies Allergy/AdvReac Type Severity Reaction Status Date / Time No Known Allergies Allergy Verified 07/09/24 16:23 Review of Systems 2 Const: Denies: fever(s), chills, body aches or change in appetite ENMT: Denies: throat pain or dental pain Card: Denies: chest pain Resp: Denies: dyspnea GI: Denies: abdominal pain, nausea, vomiting or diarrhea Musc: Denies: neck pain or back pain Skin/Breast: Denies: rash Neuro: Denies: headache(s) PFSH ED 2 PFSH: Surgical History H/O tubal ligation 04/21/2007---Done at time of third ----> pathology showed left fallopian tube with complete transection and normal morphology. The segment of tube submitted as right tube was a dilated vascular structure. The right fallopian tube with Dr. gee absent secondary to patient's history of ectopic H/O: hysterectomy 01/14/2021- [facility] and cystoscopy performed by Dr. Kearney at [facility] Family History Grandmother Cervical cancer paternal Grandfather Breast cancer, Onset Age: 45 maternal Mother Hypertension Thyroid disease Father Stroke Diabetes Denies family history of Clotting disorder Hyperlipidemia Anesthesia complication Bleeding disorder Social History Smoking and tobacco/nicotine status: never used tobacco/nicotine Physical Exam 2 Const: COMMON NORMALS: no acute distress, patient oriented x3 and healthy appearing HENMT: COMMON NORMALS: normocephalic and atraumatic HEAD & SCALP: n ormocephalic and atraumatic Eye: COMMON NORMALS: conjunctivae normal CONJUNCTIVA: Yes conjunctivae normal Neck/C-Spine: COMMON NORMALS: full ROM and supple Chest: OTHER: Wound dehiscence noted to right breast with slight erythema Resp: COMMON NORMALS: normal respiratory effort Extremity: COMMON NORMALS: normal to inspection and full ROM Neuro: COMMON NORMALS: patient oriented x3, moves all extremities and no focal motor deficits Psych: COMMON NORMALS: mental status grossly normal, Normal thought process present and cooperative THOUGHT PROCESS: Normal thought process present Skin: COMMON NORMALS: no rashes or lesions noted GENERAL SKIN EXAM: no rashes or lesions noted Course 2 Vital Signs: Vital signs: Vital Signs Temperature 98.0 F 07/09/24 16:20 Pulse Rate 74 07/09/24 17:03 Respiratory Rate 16 07/09/24 17:03 Blood Pressure 122/75 07/09/24 17:03 Pulse Oximetry 97 07/09/24 17:03 Oxygen Delivery Me thod Room Air 07/09/24 16:20 MDM - Skin/Abscess/Foreign Bdy Medicial Decision Making Patient seen by Dr. Velarde in the ER who debrided her wound CBC and ESR is normal here and plan to discharge she is to continue her Bactrim she is to follow-up with her surgeon as scheduled next week return if worsening she understands agrees to plan Medical Records I reviewed the patient's medical records. Lab Data I reviewed the patient's lab results. 07/09/24 16:32 07/09/24 16:32 Laboratory Results WBC 10.79 10^3/uL (3.29-11.43) 07/09/24 16:32 RBC 4.49 10^6/uL (3.85-5.65) 07/09/24 16:32 Hgb 14.10 g/dL (11.27-16.99) 07/09/24 16:32 Hct 41.2 % (36-47) 07/09/24 16:32 MCV 91.8 fl (85-98) 07/09/24 16:32 MCH 31.4 pg (27-33) 07/09/24 16:32 MCHC 34.2 g/dL (30-55) 07/09/24 16: RDW 11.5 % (12.1-15.1) L 07/09/24 16: Plt Count 356 10^3/cmm (157-399) 07/09/24 16:32 MPV 9.6 fL (7.4-10.4) 07/09/24 16:32 Neut % (Auto) 64.2 % 07/09/24 16:32 Lymph % (Auto) 26.8 % 07/09/24 16:32 Dale % (Auto) 7.0 % 07/09/24 16:32 Eos % (Auto) 1.0 % 07/09/24 16: Baso % (Auto) 0.5 % 07/09/24 16: Neut # (Auto) 6.94 10^3/uL (1.8-7.7) 07/09/24 16:32 Lymph # (Auto) 2.9 10^3/uL (0.8-4.8) 07/09/24 16:32 Dale # (Auto) 0.8 10^3/uL (0.2-0.9) 07/09/24 16:32 Eos # (Auto) 0.1 10^3/uL (0.0-0.8) 07/09/24 16:32 Baso # (Auto) 0.1 10^3/uL (0.0-0.1) 07/09/24 16:32 Nucleated RBC % (auto) 0 % 07/09/24 16: Nucleated RBCs # 0.0 /100WBC 07/09/24 16:32 ESR 3 mm/hr (0-15) 07/09/24 16:32 Sodium 137 mmol/L (136-145) 07/09/24 16:32 Potassium 3.9 mmol/L (3.5-5.1) 07/09/24 16:32 Chloride 100 mmol/L (98-107) 07/09/24 16:32 Carbon Dioxide 27 mmol/L (22-29) 07/09/24 16:32 Anion Gap 13.9 (5-19) 07/09/24 16:32 BUN 13 mg/dL (6-20) 07/09/24 16:32 Creatinine 1.0 mg/dL (0.5-0.9) H 07/09/24 16:32 GFR Calculation 59.7 mL/min (90-130) L 07/09/24 16:32 Glucose 107 mg/dL (65-115) 07/09/24 16:32 Calculated Osmolality 285 mOsm/kg (285-295) 07/09/24 16:32 Calcium 9.0 mg/dL (8.5-10.5) 07/09/24 16:32 Total Bilirubin 0.3 mg/dL (0.15-1.2) 07/09/24 16:32 AST 18 U/L (0-32) 07/09/24 16:32 ALT 18 U/L (0-33) 07/09/24 16:32 Alkaline Phosphatase 86 U/L (35-105) 07/09/24 16:32 Total Protein 7.6 g/dL (6.6-8.7) 07/09/24 16:32 Albumin 4.5 g/dL (3.5-5.2) 07/09/24 16:32 Globulin 3.1 g/dL (1.3-4.6) 07/09/24 16:32 No radiology studies performed this visit Discharge Plan Discharge Patient Disposition: Home Clinical Impression: Dehiscence of wound Condition: Stable Prescriptions: No Action sulfamethoxazole-trimethoprim [Bactrim DS] 800-160 mg tablet 1 tab PO BID Discharge Orders: Discharge ED (Routine); Ordered 07/09/24 Ordered By: Luz Maria Lorenzana Referrals: Antonio Kearney MD [Primary Care Provider] - Neftali Landin MD [Physician] - 4-7 days Discharge Diet: Advance as tolerated Discharge Activity: Resume usual activity Patient Instructions: Wound Dehiscence (ED) Coding Level of Care Code ED Utility Work[employer] for Anjana Carty
[2024-07-09 16:46] LABS: Basophils # 0.1 10^3/uL (0.0-0.1); Basophils % 0.5 %; Eosinophils # 0.1 10^3/uL (0.0-0.8); Hematocrit 41.2 % (36-47); Lymphocytes # 2.9 10^3/uL (0.8-4.8); Lymphocytes % 26.8 %; Mean Corpuscular HGB Conc 34.2 g/dL (30-55); Mean Corpuscular Hemoglobin 31.4 pg (27-33); Mean Corpuscular Volume 91.8 fl (85-98); Mean Platelet Volume 9.6 fL (7.4-10.4); Monocytes # 0.8 10^3/uL (0.2-0.9); Neutrophils # 6.94 10^3/uL (1.8-7.7); Neutrophils % 64.2 %; Nucleated Red Blood Cells % 0 %; Platelet Count 356 10^3/cmm (157-399); Red Blood Count 4.49 10^6/uL (3.85-5.65); Red Cell Distribution Width 11.5 % (12.1-15.1); White Blood Count 10.79 10^3/uL (3.29-11.43)
[2024-07-09 17:01] LABS: Alanine Aminotransferase 18 U/L (0-33); Albumin Level 4.5 g/dL (3.5-5.2); Alkaline Phosphatase 86 U/L (35-105); Anion Gap 13.9 (5-19); Aspartate Amino Transferase 18 U/L (0-32); Blood Urea Nitrogen 13 mg/dL (6-20); Carbon Dioxide 27 mmol/L (22-29); Chloride 100 mmol/L (98-107); Creatinine Clr Calc Pharmacy 66.6228; Globulin 3.1 g/dL (1.3-4.6); Glomerular Filtration Rate 59.7 mL/min (90-130); Glucose 107 mg/dL (65-115); Osmolality Calculated 285 mOsm/kg (285-295); Potassium 3.9 mmol/L (3.5-5.1); Sodium 137 mmol/L (136-145); Total Bilirubin 0.3 mg/dL (0.15-1.2); Total Protein 7.6 g/dL (6.6-8.7)
[2024-07-09 17:03] VITALS: BP 122/75; PULSE 74; RESP 16; O2SAT 97
[2024-07-09 17:07] LABS: Erythrocyte Sedimentation Rate 3 mm/hr (0-15)
[2024-07-09 17:57] VITALS: BP 138/90; PULSE 70; RESP 16; O2SAT 96
== END 2024-07-09 18:00 | disposition home or self-care (01) ==
PROVIDERS: Emergency Provider Emergency Medicine; PCP Obstetrics & Gynecology
DX: T81.31XA Disruption of external operation (surgical) wound, not elsewhere classified, initial encounter (principal)
CPT/HCPCS: 36415; 80053; 85025; 85651; 99283

== ENCOUNTER → 2024-07-19 13:12 | Outpatient (BNVA) | payer MEDICAID, SELFPAY | PROVIDERS: PCP Obstetrics & Gynecology; Visit Provider Student in an Organized Health Care Education/Training Program | DX: Z98.890 Other specified postprocedural states (principal) | CPT/HCPCS: 99024 ==

== ENCOUNTER → 2025-03-11 07:50 | Outpatient (BNVA) | payer MEDICAID, SELFPAY | PROVIDERS: Visit Provider Physician Assistant | DX: M79.643 Pain in unspecified hand (principal); M79.642 Pain in left hand; S62.341D Nondisplaced fracture of base of second metacarpal bone, left hand, subsequent encounter for fracture with routine healing; V89.2XXD Person injured in unspecified motor-vehicle accident, traffic, subsequent encounter | CPT/HCPCS: 73130; 99203 ==

== ENCOUNTER → 2025-08-28 15:20 | Outpatient (BNVA) | payer MEDICAID, SELFPAY | PROVIDERS: Visit Provider Dermatology | DX: L81.4 Other melanin hyperpigmentation (principal); D22.5 Melanocytic nevi of trunk; D48.5 Neoplasm of uncertain behavior of skin | CPT/HCPCS: 11104; 99203 ==

== ENCOUNTER 2025-09-25 16:27 | Outpatient (CLI) | payer MEDICAID, SELFPAY ==
--- NOTE | 2025-09-25 16:32 | CT_ITS ---
WS: [id number] CT NECK WITH CONTRAST HISTORY: CERVICALGIA, palpable mass RIGHT lateral neck. TECHNIQUE: Contiguous 2 mm axial images are performed through the neck with intravenous contrast. Sagittal and coronal reformats are also submitted. All CT scans at [facility] use at least one of these dose optimization techniques: automated exposure control; mA and/or kV adjustment per patient size (includes targeted exams where dose is matched to clinical indication); or iterative reconstruction. CONTRAST: CONTRAST: Omnipaque 350; 100 mL IV. DLP: 168.13 mGy.cm COMPARISON: Thyroid ultrasound 08/14/2025 Marker placed along the RIGHT lateral neck above the level of the cricoid and just posterior to the sternocleidomastoid muscle. There is a very small nodule deep to this marker measuring 5 mm which is a lymph node in level VA. Similar lymph nodes are noted also on the LEFT. No pathologically enlarged lymph node identified. Nasopharynx, oropharynx, hypopharynx and larynx are unremarkable. No soft tissue masses or abnormal enhancement. Torus tubarius and fossa of Rosenmuller and parapharyngeal fat are normal. Small cervical chain lymph nodes. Largest lymph nodes are on the RIGHT at level 1B and 2A measuring up to 9.5 mm. Normal fatty hilum remains. Thyroid gland and salivary glands are normally enhancing with no masses. No osseous abnormalities. Visualized paranasal sinuses and mastoid air cells are normal. Lung apices are clear. CT/CT neck w con* [id number] IMPRESSION: 1. Palpable area along the RIGHT lateral neck corresponds to a 5 mm benign-lilli earing lymph node at level VA. 2. No pathologically enlarged cervical chain lymph nodes. 3. Normal salivary glands.
[2025-09-25] MEDS: iohexol 350 mg/mL 500 mL Btl (per mL) IV (16:56)
== END 2025-09-25 16:28 | disposition home or self-care (01) ==
LOC: RAD 16:27
PROVIDERS: Visit Provider Specialist
DX: M54.2 Cervicalgia (principal); R22.1 Localized swelling, mass and lump, neck
CPT/HCPCS: 70491